=== PATIENT | female | born 2000 | race Caucasian/White ===

== ENCOUNTER 2019-12-25 15:48 | Outpatient (CLI) | payer OTHER, SELFPAY ==
--- NOTE | ~2019-12-25 | MR_ITS ---
EXAMINATION: MR knee LT wo con DATE: 12/25/2019 17:00 INDICATION: Left ACL tear with acute onset left knee pain. TECHNIQUE: Magnetic resonance imaging (MRI) of the left knee was performed without intravenous contra st. Sequences included coronal PD-weighted FSE, coronal PD-weighted FS FSE, sagittal T2-weighted FSE , sagittal PD-weighted FS FSE and axial PD weighted fat saturated FSE. COMPARISON: None. FINDINGS: Medial compartment: Medial meniscus is normal. Articular cartilage is normal. Lateral compartment: Lateral meniscus is normal. Articular cartilage is normal. Patellofemoral compartment: Articular cartilage is normal. Ligaments and tendons: Anterior and posterior cruciate ligaments are normal. The medial collateral ligament and fibular alea ateral ligament complex are normal. The extensor mechanism is normal. The visualized medial and later al hamstring tendons as well as the iliotibial band are normal. Fluid: Physiologic amount of fluid in the joint space. No loose osteochondral bodies identified. Osseous/other: There is prominent marrow edema surrounding a linear low signal intensity intramedullary fracture janell e in the metaphyseal region of the medial tibial plateau paralleling the physis scar. No evident exte nsion to involve the more peripheral cortex. No other fractures identified. No pathologic marrow repl acing process. IMPRESSION: 1. Nondisplaced metaphyseal intramedullary stress fracture of the medial tibial plateau. 2. Otherwise normal left knee MRI with normal cartilage, menisci and stabilizing ligaments. Reviewed, dictated and finalized at location A. IMPRESSION: 1. Nondisplaced metaphyseal intramedullary stress fracture of the medial tibial plateau. 2. Otherwise normal left knee MRI with normal cartilage, menisci and stabilizin g ligaments.
== END 2019-12-25 15:49 | disposition home or self-care (01) ==
DX: M84.362A Stress fracture, left tibia, initial encounter for fracture (principal); X58.XXXA Exposure to other specified factors, initial encounter
CPT/HCPCS: 73721